=== PATIENT | male | born 1950 | race Caucasian/White ===

== ENCOUNTER 2019-10-31 02:07 | Emergency (ER) | payer OTHER ==
[~2019-10-31] VITALS: Ht 182.9 cm; Wt 97.2 kg
[2019-10-31 02:10] VITALS: Ht 182.9 cm; Wt 97.2 kg
[2019-10-31 03:48] LABS: CALCIUM 9.2 mg/dL (8.5-10.1); CARBON DIOXIDE 23.1 mmol/L (21-32); CHLORIDE SERUM 99 mmol/L (98-107); CREATININE SERUM 0.9 mg/dL (0.7-1.3); GFR1 > 60 mL/min; GLUCOSE SERUM 401 mg/dL (74-106); POTASSIUM SERUM 4.3 mmol/L (3.5-5.1); SODIUM SERUM 134 mmol/L (136-145)
[2019-10-31 03:53] LABS: ALBUMIN 3.9 g/dL (3.4-5.0); ALKALINE PHOSPHATASE 183 U/L (46-116); ALT/SGPT 86 U/L (16-63); AST/SGOT 57 U/L (15-37); BILIRUBIN TOTAL 0.6 mg/dL (0.20-1.00)
[2019-10-31 04:27] VITALS: BP 163/100
[2019-10-31 04:51] LABS: BASOPHIL % 0.6 % (0-2); RED CELL DISTRIBUTION WIDTH 12.7 % (11.5-14.5)
[2019-10-31 04:56] LABS: PLATELET COUNT 119 x10^3mcL (130-400)
== END 2019-10-31 04:27 | disposition home or self-care (01) ==
LOC: ED 02:07
DX: I10 Essential (primary) hypertension (principal); E11.9 Type 2 diabetes mellitus without complications
CPT/HCPCS: 36415